=== PATIENT | female | born 1990 | race Asian ===

== ENCOUNTER 2017-06-02 14:30 | Emergency (ER) | payer SELFPAY ==
--- NOTE | 2017-06-02 17:59 | EDM.PDOC ---
ED HPI GENERAL MEDICAL PROBLEM - General Chief Complaint: Lower Extremity Injury/Pain Stated Complaint: HURT FOOT Time Seen by Provider: 06/02/17 17:50 Source of Information: Reports: Patient History Limitations: Reports: No Limitations - History of Present Illness INITIAL COMMENTS - FREE TEXT/NARRATIVE: 26-year-old female dropped a carton of plants with dirt onto her right foot. It' s swollen and painful, she is scared to bear weight. No other injury. Onset: Sudden Duration: Hour(s): (within the last several hours) Location: Reports: Lower Extremity, Right Severity: Mild Associated Symptoms: Reports: No Other Symptoms - Related Data Allergies Allergy/AdvReac Type Severity Reaction Status Date / Time No Known Allergies Allergy Verified 06/02/17 16:20 Home Meds: Home Meds NK [No Known Home Meds] 06/02/17 [History] Social & Family History - Tobacco Use Smoking Status *Q: Never Smoker - Caffeine Use Caffeine Use: Reports: None - Recreational Drug Use Recreational Drug Use: No Review of Systems - Review of Systems Review Of Systems: See Below Constitutional: Denies: Fever Respiratory: Denies: Shortness of Breath Skin: Reports: Other (there is an abrasion on the top of the foot) Neurological: Denies: Paresthesia Psychiatric: Reports: No Symptoms ED EXAM, GENERAL - Physical Exam Exam: See Below Exam Limited By: No Limitations General Appearance: Alert, No Apparent Distress Respiratory/Chest: No Respiratory Distress Extremities: Other (remainder of exam is limited to the lower extremities. There is swelling and edema on the top of the right foot compared to the left with tenderness to palpation. There is a localized abrasion on the top of the foot just in front of the ankle. No fibula or tibia tenderness.) Course - Vital Signs Last Recorded V/S: Last Vital Signs Temp 97.8 F 06/02/17 16:22 Pulse 60 06/02/17 16:22 Resp 16 06/02/17 16:22 BP 115/34 L 06/02/17 16:22 Pulse Ox 98 06/02/17 16:22 - Orders/Labs/Meds Orders: Active Orders 24 hr Category Date Time Status Foot Comp Min 3V Rt [CR] Stat Exams 06/02/17 17:55 Taken - Re-Assessments/Exams Free Text/Narrative Re-Assessment/Exam: 06/02/17 17:59 a right foot x-ray was obtained. 06/02/17 18:17 x-ray is normal. A three-inch Nolberto wrap was applied to the foot and the patient was encouraged to ice, elevate, and increase activity as tolerated. She can recheck with podiatry next week if not improving satisfactorily. Departure - Departure Time of Disposition: 18:25 Disposition: Home, Self-Care 01 Condition: Good Clinical Impression: Contusion of foot, right Qualifiers: Encounter type: initial encounter Qualified Code(s): S90.31XA - Contusion of right foot, initial encounter - Discharge Information Instructions: Foot Contusion, [id number] Referrals: PCP,None [Primary Care Provider] - Forms: ED Department Discharge Care Plan Goals: Wrap foot for support and to reduce swelling. Elevate when able, ice for the next 2 days may help and ibuprofen should help as well. Increase activity as tolerated and recheck at the clinic next week if not improving satisfactorily. - My Orders Last 24 Hours: My Active Orders 06/02/17 17:55 Foot Comp Min 3V Rt [CR] Stat - Assessment/Plan Last 24 Hours: My Active Orders 06/02/17 17:55 Foot Comp Min 3V Rt [CR] Stat
--- NOTE | 2017-06-04 10:05 | CR ---
Foot Comp Min 3V Rt HISTORY: injury FINDINGS: No acute fracture or dislocation is identified. Bony architecture and joint spaces are preserved. S oft tissues are unremarkable. IMPRESSION: No acute right foot abnormality identified.
== END 2017-06-02 18:24 | disposition home or self-care (01) ==
LOC: JP.ED 14:30
DX: S90.31XA Contusion of right foot, initial encounter (principal); W18.49XA Other slipping, tripping and stumbling without falling, initial encounter
CPT/HCPCS: 73630-26-RT; 73630-RT; 99284